=== PATIENT | male | born 1965 | race African-American/Black ===

== ENCOUNTER 2019-01-23 08:24 | Emergency (ER) | payer BC ==
[2019-01-23 08:46] VITALS: BP 185/100
--- NOTE | 2019-01-23 09:48 | EDM.PDOC ---
ED HPI GENERAL MEDICAL PROBLEM - General Chief Complaint: Back Pain or Injury Stated Complaint: RE CHECK BACK PAIN Time Seen by Provider: 01/23/19 09:47 - History of Present Illness INITIAL COMMENTS - FREE TEXT/NARRATIVE: Patient left without being seen it is reported to me that he is not having any pain at this time - Related Data Allergies Allergy/AdvReac Type Severity Reaction Status Date / Time No Known Allergies Allergy Verified 01/23/19 08:46 Home Meds: Home Meds Ciprofloxacin HCl [Cipro] 500 mg PO BID #20 tablet 11/19/14 [Rx] Clindamycin HCl 150 mg PO TID #21 capsule 11/19/14 [Rx] oxyCODONE HCl/Acetaminophen [Percocet 5-325 mg Tablet] 1 - 2 each PO Q4H #20 tablet 11/19/14 [Rx] Orphenadrine [Norflex] 100 mg PO BID PRN #14 tab 01/10/19 [Rx] Past Medical History - Past Health History Medical/Surgical History: Denies Medical/Surgical History Social & Family History - Tobacco Use Smoking Status *Q: Current Every Day Smoker Years of Tobacco use: 25 Packs/Tins Daily: 0.5 ED ROS GENERAL - Review of Systems Review Of Systems: See Below (Patient left without being seen) ED EXAM,LOWER BACK PAIN/INJURY - Physical Exam Exam: See Below (Left without being seen) Course - Vital Signs Last Recorded V/S: Last Vital Signs Temp 36.4 C 01/23/19 08:41 Pulse 80 01/23/19 08:41 Resp 16 01/23/19 08:41 BP 185/100 H 01/23/19 08:41 Pulse Ox 100 01/23/19 08:41 Departure - Departure Time of Disposition: 09:51 Disposition: Left Without Being Seen 07 Clinical Impression: Low back pain Qualifiers: Chronicity: acute Back pain laterality: right Sciatica presence: without sciatica Qualified Code(s): M54.5 - Low back pain - Discharge Information Referrals: PCP,None [Primary Care Provider] - Forms: ED Department Discharge
== END 2019-01-23 09:47 | disposition left against medical advice (07) ==
LOC: JD.ED 08:24
DX: Z53.21 Procedure and treatment not carried out due to patient leaving prior to being seen by health care provider (principal)

== ENCOUNTER 2020-04-08 10:03 | Emergency (ER) | payer BC ==
[2020-04-08 10:20] VITALS: BP 168/101; PULSE 97
--- NOTE | 2020-04-08 11:28 | EDM.PDOC ---
ED HPI GENERAL MEDICAL PROBLEM - General Chief Complaint: Lower Extremity Injury/Pain Stated Complaint: left knee pain Time Seen by Provider: 04/08/20 10:22 Source of Information: Reports: Patient, RN Notes Reviewed - History of Present Illness INITIAL COMMENTS - FREE TEXT/NARRATIVE: 54 yr old male comes in with knee pain that he has had for the past month. Not aware of any specific injury. 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 Pain is worse standing and walking. He has been taking some ibuprofen and tylenol without much relief. 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 Left Knee Pain Score (Numeric/FACES): 7 - Related Data Allergies Allergy/AdvReac Type Severity Reaction Status Date / Time No Known Allergies Allergy Verified 04/08/20 10:20 Home Meds: Home Meds Naproxen [Naprosyn] 500 mg PO Q12HR #14 tab 04/08/20 [Rx] Past Medical History - Past Health History Medical/Surgical History: Denies Medical/Surgical History Social & Family History - Tobacco Use Tobacco Use Status *Q: Current Every Day Tobacco User Years of Tobacco use: 30 Packs/Tins Daily: 0.5 - Caffeine Use Caffeine Use: Reports: Coffee - Recreational Drug Use Recreational Drug Use: No Review of Systems - Review of Systems Review Of Systems: See Below Constitutional: Denies: Chills, Fever Mouth/Throat: Reports: No Symptoms Respiratory: Reports: No Symptoms Cardiovascular: Reports: No Symptoms Musculoskeletal: Reports: Joint Pain Skin: Reports: No Symptoms Neurological: Reports: No Symptoms ED EXAM, GENERAL - Physical Exam Exam: See Below General Appearance: Alert, No Apparent Distress Head: Atraumatic Neck: Supple Respiratory/Chest: No Respiratory Distress, Lungs Clear, Normal Breath Sounds Extremities: Other (mild tenderness of L knee posteriorly, mild tenderness a nteriorly over the patella and inf. to patella. Very mild generalized swelling, no effusion, good ROM with mild discomfort, jt is stable, lower leg is nontender with swelling, warmth or erythema) Skin Exam: Warm, Dry, No Rash Course - Vital Signs Last Recorded V/S: Last Vital Signs Temp 97.2 F 04/08/20 10:13 Pulse 97 04/08/20 10:13 Resp 16 04/08/20 10:13 BP 168/101 H 04/08/20 10:13 Pulse Ox 100 04/08/20 10:13 - Orders/Labs/Meds Orders: Active Orders 24 hr Category Date Time Status Knee Min 4V Lt [CR] Stat Exams 04/08/20 10:28 Taken Durable Medical Equipment for Discharge [DME for Oth 04/08/20 11:24 Ordered Discharge] [COMM] Stat - Re-Assessments/Exams Free Text/Narrative Re-Assessment/Exam: 04/08/20 11:35 X rays do not show any acute findings. Departure - Departure Time of Disposition: 11:23 Disposition: Home, Self-Care 01 Condition: Fair Clinical Impression: Knee pain, left Qualifiers: Chronicity: acute Qualified Code(s): M25.562 - Pain in left knee - Discharge Information Prescriptions: Naproxen [Naprosyn] 500 mg PO Q12HR #14 tab Instructions: Acute Knee Pain, Adult Referrals: PCP,None [Primary Care Provider] - Forms: ED Department Discharge, ED Return to Work/School Form Additional Instructions: Rest knee today and tomorrow. Js wrap. Naprosyn 500 mg twice daily for pain and inflamation. Tylenol in addition 3 times daily. Alternate ice and heat as needed. See Orthopedist in 7 to 10 days if pain not resolving as expected. Dr Kasper, [facility] [phone] Lu [facility], [phone]. Sepsis Event Note (ED) - Evaluation Sepsis Screening Result: No Definite Risk - Focused Exam Vital Signs: Vital Signs Temp Pulse Resp BP Pulse Ox 04/08/20 10:13 97.2 F 97 16 168/101 H 100 - My Orders Last 24 Hours: My Active Orders 04/08/20 10:28 Knee Min 4V Lt [CR] Stat 04/08/20 11:24 Durable Medical Equipment for Discharge [DME for Discharge] [COMM] Stat - Assessment/Plan Last 24 Hours: My Active Orders 04/08/20 10:28 Knee Min 4V Lt [CR] Stat 04/08/20 11:24 Durable Medical Equipment for Discharge [DME for Discharge] [COMM] Stat
--- NOTE | 2020-04-08 13:35 | CR ---
PROCEDURE INFORMATION: Exam: XR Left Knee Exam date and time: 04/08/2020 10:35 AM Age: 54 years old Clinical indication: Pain; Knee; Left TECHNIQUE: Imaging protocol: XR Left knee. Views: 4 or more views. COMPARISON: No relevant prior studies available. FINDINGS: Bones/joints: Bones are demineralized. Soft tissues: Normal. Other findings: Small effusion. IMPRESSION: Bones are demineralized and there is a small effusion. Left knee otherwise normal. Thank you for allowing us to participate in the care of your patient. Dictated and Authenticated by: July Carranza MD 04/08/2020 1:00 PM Central Time ([place] & [place]) JOEL
== END 2020-04-08 11:33 | disposition home or self-care (01) ==
LOC: JD.ED 10:03
DX: M25.562 Pain in left knee (principal); F17.210 Nicotine dependence, cigarettes, uncomplicated
CPT/HCPCS: 73564-26-LT; 73564-LT; 99283; 99283-25